=== PATIENT | female | born 1980 | race Caucasian/White ===

== ENCOUNTER 2016-06-19 17:01 | Emergency (ER) | payer MEDICARE, OTHER ==
[~2016-06-19] VITALS: Wt 112.0 kg
[~2016-06-19 17:01] MED LIST: ACET500T84; ASPI81TA3 PO; AUG875 PO; BENA10TA48 PO; CEPH500C PO; CLOT30CR24 TOP; GABA-526 PO; HC1C30 TOP; HYDR-3498 PO; HYDR-906 PO; IBUP-1542 PO; INSU100I14 SC; LANT3I SC; METF1000 PO; METO10TA96 PO; ONDA4TAB14 PO; ONDA4TAB96 PO; POLY17PO3; PRED20TA PO; SYN15 PO; TRAZ100T15 PO; ZOC20 PO
[2016-06-19] MEDS ORDERED: morphine 4 MG/ML VIAL IV STA (17:27)
[2016-06-19] MEDS ORDERED: SOD CHLORIDE 0.9% 1,000 ML IV STA (17:27)
[2016-06-19] MEDS ORDERED: ONDANSETRON 4 MG INJ IV STA (17:27)
--- NOTE | 2016-06-19 17:37 | ERD ---
ER Documentation Chief Complaint Date/Time DATE: 06/19/16 TIME: 17:31 Chief Complaint ABD PAIN SINCE LAST NIGH, NAUSEA NO VOMIT. DIARRHEA NO BLOOD HPI 35-year-old female with a history of gastric bypass Brayan-en-Y procedure 2 months ago present to the emergency department complaining of gradually worsening intermittent 8 out of 10 diffuse abdominal pain 1 day. Patient states she is also felt nauseous but has not vomited. Patient's last bowel movement was this morning and she describes it as loose however patient states this is normal for her as she has had consistent loose stools since the surgery. Patient was initially constipated after surgery and then was placed on MiraLAX and stool softener. Patient also notes intermittent diffuse pruritic rash across her chest. Patient states she is not currently on control and is 11 days late on her. Patient has not treated her pain at home with any analgesic and has not used any postprocedure opiate medication for 1 month. Patient denies any chest pain, shortness of breath, calf swelling or erythema, or headache. ROS All systems reviewed and are negative except as per history of present illness. Medications Home Meds Active Scripts Acetaminophen* (Tylenol*) 325 Mg Tablet, 2 TAB PO Q6 Y for PAIN AND OR ELEVATED TEMP, #20 TAB Prov:JERRICA TANNER PA-C 06/19/16 Ondansetron (Ondansetron Odt) 4 Mg Tab.rapdis, 4 MG PO Q6H Y for NAUSEA AND/OR VOMITING, #10 TAB Prov:JERRICA TANNER PA-C 06/19/16 Ondansetron (Ondansetron Odt) 4 Mg Tab.rapdis, 4 MG PO Q6H Y for NAUSEA AND/OR VOMITING, #10 TAB Prov:EVAN CANNON 02/03/16 Hydrocodone/Acetaminophen ([place] 5-325 Tablet) 1 Each Tablet, 1 TAB PO Q6H Y for PAIN, #20 TAB Prov:EVAN CANNON 02/03/16 Clotrimazole* (Clotrimazole* AF) 1% - 30 Gm Cream.gm., 1 APPLIC TOP BID for 7 Days, TUB Prov:PAULO GOINS PA-C 01/10/16 Hydrocortisone* Topical (Hydrocortisone* Topical) 1%-28.35 Gm Cream..g., 1 APPLIC TOP Q6 Y for ITCHING, #1 TUB Prov:PAULO GOINS PA-C 01/10/16 Prednisone* (Prednisone*) 20 Mg Tab, 60 MG PO DAILY for 5 Days, TAB Prov:PAULO GOINS PA-C 01/10/16 Amoxicillin-Clavulanate K* (Augmentin*) 875 Mg Tab, 875 MG PO BID for 10 Days, TAB Prov:MAYI NUÑEZ MD 06/21/15 Hydrocodone Bit-Acetaminophen* ([place]*) 5-325 Mg Tab, 1 TAB PO Q6 Y for PAIN, # 7 TAB Prov:MAYI NUÑEZ MD 06/21/15 Reported Medications Trazodone Hcl* (Desyrel*) 100 Mg Tab, 100 MG PO TID, #90 06/21/15 Gabapentin* (Gabapentin*) 600 Mg Tablet, 600 MG PO DAILY, #90 06/21/15 Metoclopramide Hcl* (Metoclopramide Hcl*) 10 Mg Tablet, 10 MG PO Q6H Y for NAUSEA AND OR VOMITING, TAB 06/21/15 Polyethylene Glycol* (Polyethylene Glycol*) 17 Gm Powd.pack, #5 06/21/15 Ondansetron Hcl* (Ondansetron Hcl*) 4 mg -ODT Tab.disper, 4 MG PO Q6H Y for NAUSEA AND OR VOMITING, TAB 06/21/15 Cephalexin* (Cephalexin*) 500 Mg Capsule, 500 MG PO QID, #40 06/21/15 Ibuprofen* (Ibuprofen*) 600 Mg Tablet, 600 MG PO Q6 Y for PAIN, #20 06/21/15 Acetaminophen (Q-Pap Extra Strength) 500 Mg Tablet, #60 06/21/15 Insulin Lispro (Humalog) 100 U/Ml Insuln.pen, 20 UNITS SC TID, EA 04/10/14 Insulin Glargine* (Lantus*) 100 Unit/Ml Soln, 45 UNIT SC HS, EA 04/10/14 Simvastatin (Simvastatin) 20 Mg Tablet, 20 MG PO DAILY, TAB 04/10/14 Benazepril Hcl* (Benazepril Hcl*) 10 Mg Tablet, 10 MG PO DAILY, TAB 04/10/14 Levothyroxine Sodium* (Synthroid*) 150 Mcg Tablet, 150 MCG PO DAILY, TAB 04/10/14 Aspirin* (Aspirin* Chew) 81 Mg Tab.chew, 81 MG PO DAILY, TAB.CHEW 04/10/14 Metformin Hcl* (Metformin Hcl*) 1,000 Mg Tablet, 1000 MG PO BID, TAB 04/10/14 Allergies Allergies: Coded Allergies: No Known Allergy (Verified , 10/25/14) PMhx/Soc History of Surgery: Yes (Renal Stone Removed) Anesthesia Reaction: No Hx Neurological Disorder: Yes (Neuropathy) Hx Respiratory Disorders: No Hx Cardiac Disorders: Yes (HTN) Hx Psychiatric Problems: Yes (Insomnia) Hx Miscellaneous Medical Probl: Yes (DM2,Hypothyroidism,Dyslipidemia) Hx Alcohol Use: No Hx Substance Use: No Hx Tobacco Use: No Smoking Status: Never smoker Physical Exam Vitals Vital Signs Date Time Temp Pulse Resp B/P Pulse Ox O2 Delivery O2 Flow Rate FiO2 06/19/16 17:04 98.4 75 20 135/78 100 Physical Exam Const: Well-developed, well-nourished, nontoxic-appearing, well-hydrated, in no acute distress Head: Atraumatic Eyes: Normal Conjunctiva Neck: Full range of motion..~ No meningismus. Resp: Clear to auscultation bilaterally. No wheezes, rhonchi, rales Cardio: Regular rate and rhythm, no murmurs Abd: Laparoscopic incision sites well healed. No evidence of erythema, ecchymosis. soft, diffuse tenderness to palpation across abdomen with discrete tenderness across right upper and lower quadrants, non distended. Normal bowel sounds. No peritoneal signs Skin: No petechiae. Mild faint maculopapular rash extending surface of the chest. Back: No midline or flank tenderness Ext: No cyanosis, or edema Neur: Awake and alert Psych: Normal Mood and Affect Result Diagram: 06/19/16 1745 06/19/16 174 Results 24 hrs Laboratory Tests Test 06/19/16 17:45 06/19/16 17:50 Activated Partial Thromboplast Time 29.8Sec Alanine Aminotransferase (ALT/SGPT) 48IU/L Albumin 3.9g/dl Albumin/Globulin Ratio 1.11 Alkaline Phosphatase 69IU/L Anion Gap 15 Aspartate Amino Transf (AST/SGOT) 37IU/L Basophils # 0.010^3/ul Basophils % 0.6% Beta HCG, Quantitative 1455.8mIU/ml Blood Morphology Comment Blood Urea Nitrogen 19mg/dl Calcium Level 9.5mg/dl Carbon Dioxide Level 26mmol/L Chloride Level 103mmol/L Creatinine 0.66mg/dl Direct Bilirubin 0.00mg/dl Eosinophils # 0.110^3/ul Eosinophils % 0.7% Globulin 3.50g/dl Glucose Level 121mg/dl Hematocrit 39.7% Hemoglobin 13.4g/dl INR International Normalized Ratio 1.10 Indirect Bilirubin 0.4mg/dl Lipase 901U/L Lymphocytes # 2.710^3/ul Lymphocytes % 35.7% Mean Corpuscular Hemoglobin 30.8pg Mean Corpuscular Hemoglobin Concent 33.8g/dl Mean Corpuscular Volume 91.2fl Mean Platelet Volume 9.2fl Monocytes # 0.410^3/ul Monocytes % 4.8% Neutrophils # 4.410^3/ul Neutrophils % 58.2% Nucleated Red Blood Cells # 0.010^3/ul Nucleated Red Blood Cells % 0.0/100WBC Platelet Count 39439^3/UL Potassium Level 3.9mmol/L Prothrombin Time 14.2Sec Prothrombin Time Ratio 1.1 Red Blood Count 4.3510^6/ul Red Cell Distribution Width 14.7% Sodium Level 140mmol/L Total Bilirubin 0.4mg/dl Total Protein 7.4g/dl Troponin I < 0.012ng/ml White Blood Count 7.610^3/ul Urine Bilirubin NEGATIVE Urine Clarity CLEAR Urine Color LT. YELLOW Urine Glucose NEGATIVE% Urine Hemoglobin NEGATIVE Urine Ketones 40 Urine Leukocyte Esterase NEGATIVE Urine Nitrite NEGATIVE Urine Specific [place] >=1.030 Urine Total Protein NEGATIVE Urine Urobilinogen 0.2 E.U./dL Urine pH 5.5 Current Medications Medications (Trade) Dose Ordered Sig/Kesha Route PRN Reason Start Time Stop Time Status Last Admin Dose Admin Sodium Chloride (NS) 1,000 ml @ 1,000 mls/hr Q1H STAT IV 06/19/16 17:27 06/19/16 18:26 06/19/16 17:40 Morphine Sulfate (morphine) 4 mg ONCE STAT IV 06/19/16 17:27 06/19/16 17:44 DC Ondansetron HCl (Zofran Inj) 4 mg ONCE STAT IV 06/19/16 17:27 06/19/16 17:28 06/19/16 17:40 Procedures/MDM Radiology: This is a 35-year-old female with history of Brayan-en-Y gastric bypass surgery 2 months ago. Who presents with worsening diffuse abdominal pain and nausea. Vital signs were reviewed. Patient is afebrile. Patient is not hypoxic. Patient is normotensive and not tachycardic. Abdominal exam reveals diffuse tenderness to palpation. Urine test was positive. A second urine test was administered for confirmation and also positive. CBC showed no evidence of systemic infection or severe anemia. CMP showed no evidence of electrolyte abnormalities, severe acidosis, alkalosis , renal failure, or liver disease. Lipase showed no evidence of acute pancreatitis. UA showed no evidence of acute infection or hematuria. Patient advised to discontinue simvastatin. Patient states she has a follow-up appointment with her primary care physician in 3 days. Patient instructed to keep that appointment. Based on patient's history of present illness and physical examination the decision was made to discharge. The patient was re-evaluated after ED treatment and stabilizing measures, and symptoms have improved. There is no evidence of life threatening injuries or illnesses at this time. On re-examination, patient resting in no distress, stable vital signs, reports feeling better and safe for discharge with outpatient follow up with PMD in 1-2 days. Patient given return precautions. JERRICA TANNER PA-C Jun 19, 2016 17:37
[2016-06-19 17:56] LABS: BASOPHILS % 0.6 % (0.0-2.0); EOSINOPHILS # 0.1 10^3/ul (0.0-0.5); EOSINOPHILS % 0.7 % (0.0-7.0); HEMATOCRIT 39.7 % (37.0-47.0); HEMOGLOBIN 13.4 g/dl (12.0-16.0); LYMPHOCYTES # 2.7 10^3/ul (0.8-2.9); LYMPHOCYTES % 35.7 % (15.0-51.0); MEAN CORPUSCULAR HEMOGLOBIN 30.8 pg (29.0-33.0); MEAN CORPUSCULAR HGB CONC 33.8 g/dl (32.0-37.0); MEAN CORPUSCULAR VOLUME 91.2 fl (82.0-101.0); MEAN PLATELET VOLUME 9.2 fl (7.4-10.4); MONOCYTE # 0.4 10^3/ul (0.3-0.9); MONOCYTES % 4.8 % (0.0-11.0); NEUTROPHIL # 4.4 10^3/ul (1.6-7.5); NEUTROPHILS % 58.2 % (39.0-77.0); PLATELET COUNT 254 10^3/UL (140-440); RED BLOOD COUNT 4.35 10^6/ul (4.20-5.40); RED CELL DISTRIBUTION WIDTH 14.7 % (11.5-14.5); UNCORRECTED WBC 7.6 10^3/ul (4.8-10.8); WHITE BLOOD COUNT 7.6 10^3/ul (4.8-10.8)
[2016-06-19 17:59] LABS: CONDITION 1; LH ANALYZER COMMENTS 1
[2016-06-19 18:06] LABS: ALBUMIN 3.9 g/dl (3.3-4.9); CHLORIDE 103 mmol/L (97-110); INR 1.1; PROTIME 14.2 Sec (12.2-14.2); PT RATIO 1.1
[2016-06-19 18:07] LABS: PARTIAL THROMBOPLASTIN TIME 29.8 Sec (25.0-35.0); POTASSIUM 3.9 mmol/L (3.5-5.1); SODIUM 140 mmol/L (135-144)
[2016-06-19 18:09] LABS: ALANINE AMINOTRANSFERASE 48 IU/L (13-69); ALBUMIN/GLOBULIN RATIO 1.11; ALKALINE PHOSPHATASE 69 IU/L (42-121); ANION GAP 15 (8-16); ASPARTATE AMINO TRANSFERASE 37 IU/L (15-46); BILIRUBIN,INDIRECT 0.4 mg/dl (0-1.1); BILIRUBIN,TOTAL 0.4 mg/dl (0.2-1.3); BLOOD UREA NITROGEN 19 mg/dl (7-20); CARBON DIOXIDE 26 mmol/L (21-31); CREATININE 0.66 mg/dl (0.44-1.00); GLUCOSE 121 mg/dl (70-220); TOTAL PROTEIN 7.4 g/dl (6.1-8.1)
[2016-06-19 18:10] LABS: CALCIUM 9.5 mg/dl (8.4-10.2)
[2016-06-19 18:16] LABS: ADD UMIC NO; URINE BILIRUBIN (Dip) NEGATIVE (NEGATIVE); URINE BLOOD (Dip) NEGATIVE (NEGATIVE); URINE COLOR LT. YELLOW (YELLOW); URINE GLUCOSE (Dip) NEGATIVE (NEGATIVE); URINE KETONES (Dip) 40 (NEGATIVE); URINE LEUKOCYTE ESTERASE (Dip) NEGATIVE (NEGATIVE); URINE NITRITE (Dip) NEGATIVE (NEGATIVE); URINE TOTAL PROTEIN (Dip) NEGATIVE (NEGATIVE); URINE UROBILINOGEN (Dip) 0.2 E.U./dL (0.1-1.0)
[2016-06-19 18:53] LABS: TROPONIN-I < 0.012 ng/ml (0.00-0.12)
[2016-06-19] MEDS ORDERED: ACET325T33 PO (19:01)
[2016-06-19] MEDS ORDERED: ONDA4TAB14 PO (19:01)
--- NOTE | 2016-06-19 20:17 | RADRPT ---
PROCEDURE: US OB. CLINICAL INDICATION: Pain, new dx of today. no bleeding TECHNIQUE: Multiple sonographic images of the pelvis were obtained. COMPARISON: No prior studies are available for comparison. FINDINGS: The uterus is normal in size, contour, and echotexture. There is a 3.6 mm sonolucent focus within t he distal endometrial cavity likely representing early . Gestational sac measurements rupal elate to 5 weeks 1 day gestational age. There is no free fluid in the cul-de-sac or adnexal mass. The right ovary measures 4.5 x 2.4 x 2.7 cm in size. Left ovary measures 3.0 x 1.6 x 2.4 cm in size. Normal ovarian blood flow bilaterally. IMPRESSION: 1. 3.6 mm sonolucent focus within the endometrial cavity likely representing early with ge stational sac measurements correlating to 5 weeks 1 day gestational age. Correlation with serial se rum beta HCG measurements is recommended. 2. No other intrapelvic abnormality. RPTAT:AAJJ Physician Allison Date Time Electronically viewed and signed by Physician Allison on 06/19/2016 20:16 GUILLAUME/
[2016-06-19 20:36] VITALS: BP 121/78; PULSE 78; RESP 18; TEMP 97.9
== END 2016-06-19 20:37 | disposition home or self-care (01) ==
LOC: FTE 17:01
DX: R10.84 Generalized abdominal pain (principal); E11.9 Type 2 diabetes mellitus without complications; I10 Essential (primary) hypertension; E03.9 Hypothyroidism, unspecified; Z33.1 Pregnant state, incidental; Z79.4 Long term (current) use of insulin; Z79.84 Long term (current) use of oral hypoglycemic drugs; Z79.82 Long term (current) use of aspirin
CPT/HCPCS: 36415; 76801; 76817; 80053; 81003; 83690; 84484; 84702; 85025; 85610; 85730; 96374; 96375; 99285; J2405; J7030; J2270

== ENCOUNTER 2016-06-28 23:24 | Emergency (ER) | payer MEDICARE, OTHER ==
[~2016-06-28] VITALS: Ht 170.2 cm; Wt 113.2 kg
[~2016-06-28 23:24] MED LIST changes: +ACET325T33 PO
[2016-06-28 23:29] VITALS: Ht 170.2 cm; Wt 113.2 kg
--- NOTE | 2016-06-29 00:15 | ERD ---
ER Documentation Chief Complaint Date/Time DATE: 06/29/16 TIME: 00:14 Chief Complaint painful/burning urination x 1 day. also c/o abd/back pain. 6 weeks HPI [id number] female presents here in emergency department for complaints of pain upon urination started yesterday. Patient's complaining of pelvic pain, radiating to the back, cramping pain, 4/10 scale, accompanying the symptoms. Patient is approximately 6 weeks , LMP is 05/17/2016. 1 para 0 0. Patient denies any vaginal bleeding. Patient denies any fever or chills. Patient denies any nausea or vomiting. ROS All systems reviewed and are negative except as per history of present illness. Medications Home Meds Active Scripts Acetaminophen* (Tylenol*) 325 Mg Tablet, 2 TAB PO Q6 Y for PAIN AND OR ELEVATED TEMP, #20 TAB Prov:JERRICA TANNER PA-C 06/19/16 Ondansetron (Ondansetron Odt) 4 Mg Tab.rapdis, 4 MG PO Q6H Y for NAUSEA AND/OR VOMITING, #10 TAB Prov:JERRICA TANNER PA-C 06/19/16 Ondansetron (Ondansetron Odt) 4 Mg Tab.rapdis, 4 MG PO Q6H Y for NAUSEA AND/OR VOMITING, #10 TAB Prov:EVAN CANNON 02/03/16 Hydrocodone/Acetaminophen ([place] 5-325 Tablet) 1 Each Tablet, 1 TAB PO Q6H Y for PAIN, #20 TAB Prov:EVNA CANNON 02/03/16 Clotrimazole* (Clotrimazole* AF) 1% - 30 Gm Cream.gm., 1 APPLIC TOP BID for 7 Days, TUB Prov:PAULO GOINS PA-C 01/10/16 Hydrocortisone* Topical (Hydrocortisone* Topical) 1%-28.35 Gm Cream..g., 1 APPLIC TOP Q6 Y for ITCHING, #1 TUB Prov:PAULO GOINS PA-C 01/10/16 Prednisone* (Prednisone*) 20 Mg Tab, 60 MG PO DAILY for 5 Days, TAB Prov:PAULO GOINS PA-C 9/3/16 Amoxicillin-Clavulanate K* (Augmentin*) 875 Mg Tab, 875 MG PO BID for 10 Days, TAB Prov:MAYI NUÑEZ MD 06/21/15 Hydrocodone Bit-Acetaminophen* ([place]*) 5-325 Mg Tab, 1 TAB PO Q6 Y for PAIN, # 7 TAB Prov:MAYI NUÑEZ MD 06/21/15 Reported Medications Trazodone Hcl* (Desyrel*) 100 Mg Tab, 100 MG PO TID, #90 06/21/15 Gabapentin* (Gabapentin*) 600 Mg Tablet, 600 MG PO DAILY, #90 06/21/15 Metoclopramide Hcl* (Metoclopramide Hcl*) 10 Mg Tablet, 10 MG PO Q6H Y for NAUSEA AND OR VOMITING, TAB 06/21/15 Polyethylene Glycol* (Polyethylene Glycol*) 17 Gm Powd.pack, #5 06/21/15 Ondansetron Hcl* (Ondansetron Hcl*) 4 mg -ODT Tab.disper, 4 MG PO Q6H Y for NAUSEA AND OR VOMITING, TAB 06/21/15 Cephalexin* (Cephalexin*) 500 Mg Capsule, 500 MG PO QID, #40 06/21/15 Ibuprofen* (Ibuprofen*) 600 Mg Tablet, 600 MG PO Q6 Y for PAIN, #20 06/21/15 Acetaminophen (Q-Pap Extra Strength) 500 Mg Tablet, #60 06/21/15 Insulin Lispro (Humalog) 100 U/Ml Insuln.pen, 20 UNITS SC TID, EA 04/10/14 Insulin Glargine* (Lantus*) 100 Unit/Ml Soln, 45 UNIT SC HS, EA 04/10/14 Simvastatin (Simvastatin) 20 Mg Tablet, 20 MG PO DAILY, TAB 04/10/14 Benazepril Hcl* (Benazepril Hcl*) 10 Mg Tablet, 10 MG PO DAILY, TAB 04/10/14 Levothyroxine Sodium* (Synthroid*) 150 Mcg Tablet, 150 MCG PO DAILY, TAB 04/10/14 Aspirin* (Aspirin* Chew) 81 Mg Tab.chew, 81 MG PO DAILY, TAB.CHEW 04/10/14 Metformin Hcl* (Metformin Hcl*) 1,000 Mg Tablet, 1000 MG PO BID, TAB 04/10/14 Allergies Allergies: Coded Allergies: No Known Allergy (Verified , 06/28/16) PMhx/Soc History of Surgery: Yes (Renal Stone Removed) Anesthesia Reaction: No Hx Neurological Disorder: Yes (Neuropathy) Hx Respiratory Disorders: No Hx Cardiac Disorders: Yes (HTN) Hx Psychiatric Problems: Yes (Insomnia) Hx Miscellaneous Medical Probl: Yes (DM2,Hypothyroidism,Dyslipidemia HIGH CHOLESTEROL) Hx Alcohol Use: No Hx Substance Use: No Hx Tobacco Use: No Smoking Status: Never smoker FmHx Family History: No coronary disease, No diabetes, No other Physical Exam Vitals Vital Signs Date Time Temp Pulse Resp B/P Pulse Ox O2 Delivery O2 Flow Rate FiO2 06/28/16 23:29 97.5 66 20 128/72 100 Physical Exam GENERAL: The patient is well developed and appropriate for usual state of health, in no apparent distress. CHEST: Clear to auscultation bilaterally. There are no rales, wheezes or rhonchi. HEART: Regular rate and rhythm. No murmurs, clicks, rubs or gallops. No S3 or S4. ABDOMEN: Soft, nontender and nondistended. Good bowel sounds. No rebound or guarding. No gross peritonitis. No gross organomegaly or masses. No Smith sign or McBurney point tenderness. BACK: No midline or flank tenderness. EXTREMITIES: Equal pulses bilaterally. There is no peripheral clubbing, cyanosis or edema. No focal swelling or erythema. Full range of motion. Grossly neurovascularly intact. NEURO: Alert and oriented. Cranial nerves 2-12 intact. Motor strength in all 4 extremities with 5/5 strength. Sensation grossly intact. Normal speech and gait. SKIN: There is no apparent rash or petechia. The skin is warm and dry. HEMATOLOGIC AND LYMPHATIC: There is no evidence of excessive bruising or lymphedema. No gross cervical, axillary, or inguinal lymphadenopathy. Result Diagram: 06/29/16 0040 06/29/16 0040 Results 24 hrs Laboratory Tests Test 06/29/16 00:37 06/29/16 00:40 Urine Bilirubin NEGATIVE Urine Clarity CLEAR Urine Color LT. YELLOW Urine Glucose NEGATIVE% Urine Hemoglobin NEGATIVE Urine Ketones NEGATIVE Urine Leukocyte Esterase NEGATIVE Urine Nitrite NEGATIVE Urine Specific [place] 1.015 Urine Total Protein NEGATIVE Urine Urobilinogen 0.2 E.U./dL Urine pH 5.0 Alanine Aminotransferase (ALT/SGPT) 41IU/L Albumin 4.2g/dl Albumin/Globulin Ratio 1.16 Alkaline Phosphatase 76IU/L Anion Gap 20 Aspartate Amino Transf (AST/SGOT) 37IU/L Basophils # 0.010^3/ul Basophils % 0.3% Beta HCG, Quantitative 69627.0mIU/ml Blood Morphology Comment Blood Urea Nitrogen 18mg/dl Calcium Level 9.5mg/dl Carbon Dioxide Level 23mmol/L Chloride Level 103mmol/L Creatinine 0.60mg/dl Direct Bilirubin 0.00mg/dl Eosinophils # 0.110^3/ul Eosinophils % 0.7% Globulin 3.60g/dl Glucose Level 83mg/dl Hematocrit 39.3% Hemoglobin 13.2g/dl Indirect Bilirubin 0.1mg/dl Lymphocytes # 2.410^3/ul Lymphocytes % 32.0% Mean Corpuscular Hemoglobin 30.6pg Mean Corpuscular Hemoglobin Concent 33.5g/dl Mean Corpuscular Volume 91.3fl Mean Platelet Volume 9.4fl Monocytes # 0.510^3/ul Monocytes % 5.9% Neutrophils # 4.610^3/ul Neutrophils % 61.1% Nucleated Red Blood Cells # 0.010^3/ul Nucleated Red Blood Cells % 0.0/100WBC Platelet Count 39592^3/UL Potassium Level 3.9mmol/L Red Blood Count 4.3010^6/ul Red Cell Distribution Width 14.6% Sodium Level 142mmol/L Total Bilirubin 0.1mg/dl Total Protein 7.8g/dl White Blood Count 7.610^3/ul Current Medications Medications (Trade) Dose Ordered Sig/Kesha Route PRN Reason Start Time Stop Time Status Last Admin Dose Admin Acetaminophen (Tylenol Tab) 500 mg ONCE STAT PO 06/29/16 01:01 06/29/16 01:02 DC 06/29/16 01:52 Patient was given medication for pain here in emergency department, after treatment, patient verbalized feeling much better. Patient's pain is improved. PROCEDURE: US OB. CLINICAL INDICATION: . Vaginal bleeding, pain. Clinical estimate gestational age is 6 weeks 1 day with estimated date of delivery 02/21/2017. TECHNIQUE: Transabdominal and transvaginal imaging of the gravid uterus was performed. Images are reviewed on a high-resolution PACS workstation. COMPARISON: 06/19/2016 FINDINGS: There is a single intrauterine with mean gestational sac diameter equals 1.58 cm corresponding to 6 weeks 2 days gestational age. Yolk sac is seen in the intrauterine gestational sac. No pole is seen at this time. Nabothian cysts in cervix. Bilateral ovaries are unremarkable. Color flow and spectral analysis demonstrates normal arterial flow in both ovaries. No adnexal mass or free intrapelvic fluid is seen. IMPRESSION: Single intrauterine of 6 weeks 2 days gestational age with estimated date of delivery 02/20/2017 based on ultrasound measurement. No pole is seen in the intrauterine gestational sac at this time which could be due to early intrauterine . Correlation with serial quantitative beta HCGs and follow-up ultrasound is recommended. RPTAT: HJES .Andrea Stahl MD, MD Date Time Electronically viewed and signed by .Andrea Stahl MD, MD on 06/29/2016 02:21 .S/ CC: ADA MERRITT FRESCO ARTIST Procedures/MDM Medical Decision Making: Patient's abdominal pain nonspecific at this time, possibly from the growing . At this time, patient's is stable. There is no pole, most likely it is early . No urinary tract infection noted. No ectopic noted. Patient's beta hCG is consistent with patient's . Good flow in the ovaries noted, no adnexal mass noted. There is low suspicion for abdominal emergencies at this time. Patients abdominal exam is normal at this time. Other etiology exam is not indicated at this time. No leukocytosis or bandemia. Low suspicion for any sepsis or any acute bacterial infection.. There is low suspicion for appendicitis, cholecystitis, abdominal aortic aneurysms or peritonitis at this time. There is low suspicion for sepsis. Patient appears well and is hemodynamically stable. Upon discharge and reevaluation, pain is controlled, patient does not have any abdominal pain anymore. Disposition: Home. Condition: Stable Prescription tylenol Instructions: Patient is advised to take medications as prescribed. Patient is advised to rest, increase fluid intake and do see gynecology specialist within 2 days for. Patient is advised that if symptoms are worse, severe abdominal pain , uncontrolled vomiting, high fever, severe flank pain, worst signs and symptoms , to return to the emergency department immediately. Otherwise, patient can follow up with primary care doctor in 5-7 days. Departure Diagnosis: Primary Impression: Intrauterine Additional Impression: Abdominal pain Abdominal location: lower abdomen, unspecified Qualified Code: R10.30 - Lower abdominal pain Condition: Stable Patient Instructions: Abdominal Pain Additional Instructions: Patient is advised to take medications as prescribed. Patient is advised to rest , increase fluid intake and do see gynecology specialist within 2 days for. Patient is advised that if symptoms are worse, severe abdominal pain, uncontrolled vomiting, high fever, severe flank pain, worst signs and symptoms, to return to the emergency department immediately. Otherwise, patient can follow up with primary care doctor in 5-7 days. ADA MERRITT NP Jun 29, 2016 00:15
[2016-06-29] MEDS ORDERED: ACETAMINOPHEN 500 MG TAB PO STA (01:01)
[2016-06-29 01:06] LABS: ALBUMIN 4.2 g/dl (3.3-4.9)
[2016-06-29 01:07] LABS: POTASSIUM 3.9 mmol/L (3.5-5.1)
[2016-06-29 01:09] LABS: ALBUMIN/GLOBULIN RATIO 1.16; BASOPHILS % 0.3 % (0.0-2.0); BILIRUBIN,INDIRECT 0.1 mg/dl (0-1.1); BILIRUBIN,TOTAL 0.1 mg/dl (0.2-1.3); CREATININE 0.6 mg/dl (0.44-1.00); EOSINOPHILS # 0.1 10^3/ul (0.0-0.5); EOSINOPHILS % 0.7 % (0.0-7.0); HEMATOCRIT 39.3 % (37.0-47.0); HEMOGLOBIN 13.2 g/dl (12.0-16.0); LYMPHOCYTES # 2.4 10^3/ul (0.8-2.9); MEAN CORPUSCULAR HEMOGLOBIN 30.6 pg (29.0-33.0); MEAN CORPUSCULAR HGB CONC 33.5 g/dl (32.0-37.0); MEAN CORPUSCULAR VOLUME 91.3 fl (82.0-101.0); MEAN PLATELET VOLUME 9.4 fl (7.4-10.4); MONOCYTE # 0.5 10^3/ul (0.3-0.9); MONOCYTES % 5.9 % (0.0-11.0); NEUTROPHIL # 4.6 10^3/ul (1.6-7.5); NEUTROPHILS % 61.1 % (39.0-77.0); PLATELET COUNT 268 10^3/UL (140-440); RED CELL DISTRIBUTION WIDTH 14.6 % (11.5-14.5); TOTAL PROTEIN 7.8 g/dl (6.1-8.1); UNCORRECTED WBC 7.6 10^3/ul (4.8-10.8); WHITE BLOOD COUNT 7.6 10^3/ul (4.8-10.8)
[2016-06-29 01:10] LABS: CALCIUM 9.5 mg/dl (8.4-10.2)
[2016-06-29 01:11] LABS: ADD UMIC NO; URINE BILIRUBIN (Dip) NEGATIVE (NEGATIVE); URINE BLOOD (Dip) NEGATIVE (NEGATIVE); URINE COLOR LT. YELLOW (YELLOW); URINE GLUCOSE (Dip) NEGATIVE (NEGATIVE); URINE KETONES (Dip) NEGATIVE (NEGATIVE); URINE LEUKOCYTE ESTERASE (Dip) NEGATIVE (NEGATIVE); URINE NITRITE (Dip) NEGATIVE (NEGATIVE); URINE TOTAL PROTEIN (Dip) NEGATIVE (NEGATIVE); URINE UROBILINOGEN (Dip) 0.2 E.U./dL (0.1-1.0)
[2016-06-29 01:16] LABS: CONDITION 1; LH ANALYZER COMMENTS 1
--- NOTE | 2016-06-29 02:21 | RADRPT ---
PROCEDURE: US OB. CLINICAL INDICATION: . Vaginal bleeding, pain. Clinical estimate gestational age is 6 we eks 1 day with estimated date of delivery 02/21/2017. TECHNIQUE: Transabdominal and transvaginal imaging of the gravid uterus was performed. Images are reviewed on a high-resolution PACS workstation. COMPARISON: 06/19/2016 FINDINGS: There is a single intrauterine with mean gestational sac diameter equals 1.58 cm correspon ding to 6 weeks 2 days gestational age. Yolk sac is seen in the intrauterine gestational sac. No f etal pole is seen at this time. Nabothian cysts in cervix. Bilateral ovaries are unremarkable. [place] r flow and spectral analysis demonstrates normal arterial flow in both ovaries. No adnexal mass or f ree intrapelvic fluid is seen. IMPRESSION: Single intrauterine of 6 weeks 2 days gestational age with estimated date of delivery 02/06 based on ultrasound measurement. No pole is seen in the intrauterine gestational sac a t this time which could be due to early intrauterine . Correlation with serial quantitativ e beta HCGs and follow-up ultrasound is recommended. RPTAT: HJES .Andrea Stahl MD, Date Time Electronically viewed and signed by .Andrea Stahl MD, on 06/29/2016 02:21 .S/
[2016-06-29] MEDS ORDERED: ACET500C5 PO (02:42)
== END 2016-06-29 03:30 | disposition home or self-care (01) ==
LOC: FTE 23:24
DX: O26.891 Other specified pregnancy related conditions, first trimester (principal); R10.30 Lower abdominal pain, unspecified; O24.111 Pre-existing type 2 diabetes mellitus, in pregnancy, first trimester; O10.011 Pre-existing essential hypertension complicating pregnancy, first trimester; E03.9 Hypothyroidism, unspecified; R10.2 Pelvic and perineal pain; Z3A.01 Less than 8 weeks gestation of pregnancy; Z79.82 Long term (current) use of aspirin; Z79.84 Long term (current) use of oral hypoglycemic drugs; Z79.4 Long term (current) use of insulin
CPT/HCPCS: 76801; 76817; 80053; 81003; 84702; 85025; 86900; 86901

== ENCOUNTER 2016-07-11 22:40 | Emergency (ER) | payer MEDICARE, OTHER ==
[~2016-07-11] VITALS: Ht 170.2 cm; Wt 106.0 kg
[~2016-07-11 22:40] MED LIST changes: +ACET500C5 PO
[2016-07-11 23:15] VITALS: Ht 170.2 cm; Wt 106.0 kg
[2016-07-12] MEDS ORDERED: SOD CHLORIDE 0.9% 1,000 ML IV STA (02:12)
[2016-07-12] MEDS ORDERED: ONDANSETRON 4 MG INJ IV STA (02:12)
[2016-07-12] MEDS ORDERED: FAMOTIDINE 20 MG INJ IV STA (02:12)
--- NOTE | 2016-07-12 02:31 | ERD ---
ER Documentation Chief Complaint Date/Time DATE: 07/12/16 TIME: 02:30 Chief Complaint C/O LOWER MID AP +NAUSEA, 2 MONTHS HPI 35-year-old female presents here in emergency department for complaints of lower abdominal pain and epigastric pain started today. Patient is approximately 8 weeks , patient denies any vaginal bleeding. 1 para 0 0. Patient is complaining of lower abdominal pain cramping pain , 4/10 scale, also is complaining of epigastric pain, 4/10 scale, accompanied with nausea. Patient has history of gallbladder stones. Patient states that she has biliary colic episodes on-and-off. Patient denies any cramping. Patient denies any fever or chills. Patient denies any hematuria or dysuria. She did not take any medications to help with symptoms. ROS All systems reviewed and are negative except as per history of present illness. Medications Home Meds Active Scripts Acetaminophen* (Tylophen*) 500 Mg Capsule, 1 CAP PO Q6H Y for PAIN AND OR ELEVATED TEMP, #20 CAP Prov:ADA MERRITT NP 06/29/16 Acetaminophen* (Tylenol*) 325 Mg Tablet, 2 TAB PO Q6 Y for PAIN AND OR ELEVATED TEMP, #20 TAB Prov:JERRICA TANNER PA-C 06/19/16 Ondansetron (Ondansetron Odt) 4 Mg Tab.rapdis, 4 MG PO Q6H Y for NAUSEA AND/OR VOMITING, #10 TAB Prov:JERRICA TANNER PA-C 06/19/16 Ondansetron (Ondansetron Odt) 4 Mg Tab.rapdis, 4 MG PO Q6H Y for NAUSEA AND/OR VOMITING, #10 TAB Prov:EVAN CANNON 02/03/16 Hydrocodone/Acetaminophen ([place] 5-325 Tablet) 1 Each Tablet, 1 TAB PO Q6H Y for PAIN, #20 TAB Prov:EVAN CANNON 02/03/16 Clotrimazole* (Clotrimazole* AF) 1% - 30 Gm Cream.gm., 1 APPLIC TOP BID for 7 Days, TUB Prov:PAULO GOINS PA-C 01/10/16 Hydrocortisone* Topical (Hydrocortisone* Topical) 1%-28.35 Gm Cream..g., 1 APPLIC TOP Q6 Y for ITCHING, #1 TUB Prov:PUALO GOINS PA-C 01/10/16 Prednisone* (Prednisone*) 20 Mg Tab, 60 MG PO DAILY for 5 Days, TAB Prov:PAULO GOINS PA-C 01/10/16 Amoxicillin-Clavulanate K* (Augmentin*) 875 Mg Tab, 875 MG PO BID for 10 Days, TAB Prov:MAYI NUÑEZ MD 06/21/15 Hydrocodone Bit-Acetaminophen* ([place]*) 5-325 Mg Tab, 1 TAB PO Q6 Y for PAIN, # 7 TAB Prov:AMYI NUÑEZ MD 06/21/15 Reported Medications Trazodone Hcl* (Desyrel*) 100 Mg Tab, 100 MG PO TID, #90 06/21/15 Gabapentin* (Gabapentin*) 600 Mg Tablet, 600 MG PO DAILY, #90 06/21/15 Metoclopramide Hcl* (Metoclopramide Hcl*) 10 Mg Tablet, 10 MG PO Q6H Y for NAUSEA AND OR VOMITING, TAB 06/21/15 Polyethylene Glycol* (Polyethylene Glycol*) 17 Gm Powd.pack, #5 06/21/15 Ondansetron Hcl* (Ondansetron Hcl*) 4 mg -ODT Tab.disper, 4 MG PO Q6H Y for NAUSEA AND OR VOMITING, TAB 06/21/15 Cephalexin* (Cephalexin*) 500 Mg Capsule, 500 MG PO QID, #40 06/21/15 Ibuprofen* (Ibuprofen*) 600 Mg Tablet, 600 MG PO Q6 Y for PAIN, #20 06/21/15 Acetaminophen (Q-Pap Extra Strength) 500 Mg Tablet, #60 06/21/15 Insulin Lispro (Humalog) 100 U/Ml Insuln.pen, 20 UNITS SC TID, EA 04/10/14 Insulin Glargine* (Lantus*) 100 Unit/Ml Soln, 45 UNIT SC HS, EA 04/10/14 Simvastatin (Simvastatin) 20 Mg Tablet, 20 MG PO DAILY, TAB 04/10/14 Benazepril Hcl* (Benazepril Hcl*) 10 Mg Tablet, 10 MG PO DAILY, TAB 04/10/14 Levothyroxine Sodium* (Synthroid*) 150 Mcg Tablet, 150 MCG PO DAILY, TAB 04/10/14 Aspirin* (Aspirin* Chew) 81 Mg Tab.chew, 81 MG PO DAILY, TAB.CHEW 04/10/14 Metformin Hcl* (Metformin Hcl*) 1,000 Mg Tablet, 1000 MG PO BID, TAB 04/10/14 Allergies Allergies: Coded Allergies: No Known Allergy (Verified , 06/28/16) PMhx/Soc History of Surgery: Yes (Renal Stone Removed gastric bypass 2016) Anesthesia Reaction: No Hx Neurological Disorder: Yes (Neuropathy) Hx Respiratory Disorders: No Hx Cardiac Disorders: Yes (HTN) Hx Psychiatric Problems: Yes (Insomnia) Hx Miscellaneous Medical Probl: Yes (DM2,Hypothyroidism,Dyslipidemia HIGH CHOLESTEROL, gallstones) Hx Alcohol Use: No Hx Substance Use: No Hx Tobacco Use: No Smoking Status: Never smoker FmHx Family History: No coronary disease, No diabetes, No other Physical Exam Vitals Vital Signs Date Time Temp Pulse Resp B/P Pulse Ox O2 Delivery O2 Flow Rate FiO2 07/11/16 23:15 97.6 72 18 120/71 99 Physical Exam GENERAL: The patient is well developed and appropriate for usual state of health, in no apparent distress. CHEST: Clear to auscultation bilaterally. There are no rales, wheezes or rhonchi. HEART: Regular rate and rhythm. No murmurs, clicks, rubs or gallops. No S3 or S4. ABDOMEN: Soft, nontender and nondistended. Good bowel sounds. No rebound or guarding. No gross peritonitis. No gross organomegaly or masses. No Smith sign or McBurney point tenderness. BACK: No midline or flank tenderness. EXTREMITIES: Equal pulses bilaterally. There is no peripheral clubbing, cyanosis or edema. No focal swelling or erythema. Full range of motion. Grossly neurovascularly intact. NEURO: Alert and oriented. Cranial nerves 2-12 intact. Motor strength in all 4 extremities with 5/5 strength. Sensation grossly intact. Normal speech and gait. SKIN: There is no apparent rash or petechia. The skin is warm and dry. HEMATOLOGIC AND LYMPHATIC: There is no evidence of excessive bruising or lymphedema. No gross cervical, axillary, or inguinal lymphadenopathy. Result Diagram: 07/12/16 0230 07/12/16 0230 Results 24 hrs Laboratory Tests Test 07/12/16 02:30 Alanine Aminotransferase (ALT/SGPT) 42IU/L Albumin 4.5g/dl Albumin/Globulin Ratio 1.07 Alkaline Phosphatase 107IU/L Anion Gap 19 Aspartate Amino Transf (AST/SGOT) 44IU/L Basophils # 0.010^3/ul Basophils % 0.2% Beta HCG, Quantitative 370125.0mIU/ml Blood Urea Nitrogen 15mg/dl Calcium Level 9.7mg/dl Carbon Dioxide Level 26mmol/L Chloride Level 104mmol/L Creatinine 0.71mg/dl Direct Bilirubin 0.00mg/dl Eosinophils # 0.110^3/ul Eosinophils % 0.6% Globulin 4.20g/dl Glucose Level 85mg/dl Hematocrit 44.6% Hemoglobin 14.8g/dl Indirect Bilirubin 0.0mg/dl Lipase 155U/L Lymphocytes # 4.210^3/ul Lymphocytes % 33.8% Mean Corpuscular Hemoglobin 30.5pg Mean Corpuscular Hemoglobin Concent 33.2g/dl Mean Corpuscular Volume 92.0fl Mean Platelet Volume 12.2fl Monocytes # 0.610^3/ul Monocytes % 5.1% Neutrophils # 7.410^3/ul Neutrophils % 59.9% Nucleated Red Blood Cells # 0.010^3/ul Nucleated Red Blood Cells % 0.0/100WBC Platelet Count 63428^3/UL Potassium Level 3.7mmol/L Red Blood Count 4.8510^6/ul Red Cell Distribution Width 13.9% Sodium Level 145mmol/L Total Bilirubin 0.0mg/dl Total Protein 8.7g/dl Urine Bilirubin NEGATIVE Urine Clarity CLEAR Urine Color YELLOW Urine Glucose NEGATIVE% Urine Hemoglobin NEGATIVE Urine Ketones NEGATIVE Urine Leukocyte Esterase NEGATIVE Urine Nitrite NEGATIVE Urine Specific Niland >=1.030 Urine Total Protein NEGATIVE Urine Urobilinogen 0.2 E.U./dL Urine pH 5.5 White Blood Count 12.310^3/ul Current Medications Medications (Trade) Dose Ordered Sig/Kesha Route PRN Reason Start Time Stop Time Status Last Admin Dose Admin Sodium Chloride (NS) 1,000 ml @ 1,000 mls/hr Q1H STAT IV 07/12/16 02:12 07/12/16 03:11 DC 07/12/16 02:37 Ondansetron HCl (Zofran Inj) 4 mg ONCE STAT IV 07/12/16 02:12 07/12/16 02:14 DC 07/12/16 02:37 Famotidine (Pepcid Iv) 20 mg ONCE STAT IV 07/12/16 02:12 07/12/16 02:14 DC 07/12/16 02:37 Normal saline IV bolus was given here in emergency department for rehydration, patient tolerated IV fluids. Patient was given Zofran and Pepcid here in the emergency department. After treatment, patient was able to tolerate po fluids here in the emergency department without any vomiting. There is no signs and symptoms of dehydration. PROCEDURE: Abdominal ultrasound, limited. CLINICAL INDICATION: Abdominal pain. TECHNIQUE: Multiple real-time images were acquired of the patient's right upper abdomen utilizing a high resolution transducer. COMPARISON: 02/03/2016. FINDINGS: The liver demonstrates normal echogenicity and size measuring 16.7 cm. There is no focal mass or intrahepatic biliary ductal dilatation. The portal vein is patent. The gallbladder is not distended. Multiple echogenic gallstones are identified. There is no pericholecystic fluid or gallbladder wall thickening. The common bile duct measures 3.6 mm in maximal dimension. The pancreas is obscured by overlying bowel gas. No free fluid is identified. The right kidney is normal size and echogenicity measuring 9.2 cm. There is no focal renal mass or echogenic calculus identified. There is no obstructive uropathy. IMPRESSION: Cholelithiasis without ultrasound evidence of cholecystitis. Pancreas obscured by overlying bowel gas. .Ulices Guerrero MD, MD Date Time Electronically viewed and signed by .Ulices Guerrero MD, MD on 07/12/2016 03:18 .T/ CC: ADA MERRITT NP PROCEDURE: Obstetrical ultrasound. CLINICAL INDICATION: Pelvic pain. TECHNIQUE: Multiple sonographic images of the pelvis were obtained with transabdominal technique. Images were obtained with iyer scale and color Doppler. COMPARISON: 06/29/2016. FINDINGS: There is an intrauterine gestational sac with a pole identified. heart tones of 144 beats per minute are identified. The crown-rump length averages 1.09 cm, compatible with 7 weeks and 1 day. The mean sac diameter averages 3.36 cm, compatible with 8 weeks and 4 days. A yolk sac is identified. No subchorionic collection is identified. There is no pelvic free fluid. Bilateral ovaries are not visualized. There is no suspicious adnexal mass identified. IMPRESSION: Single live intrauterine with an estimated gestational age of 7 weeks and 6 days, with an ultrasound RUTHY of 02/22/2017. Bilateral ovaries not visualized. .Ulices Guerrero MD, Date Time Electronically viewed and signed by .Ulices Guerrero MD, on 07/12/2016 03:19 .T/ CC: ADA MERRITT [employer] OPER[employer] HELPER Procedures/MDM Medical Decision Making: Patient's upper abdominal pain most likely can from increased acidity, can be also be from biliary colic. Liver function tests are normal, no ultrasound evidence of cholecystitis. No Smith sign noted. Patient' s lower abdominal pain nonspecific, can be from the groin , patient's menses stable at this time at 7 weeks. There is low suspicion for abdominal emergencies at this time. Patients abdominal exam is normal at this time. Radiology exam is not indicated at this time. There is low suspicion for appendicitis, cholecystitis, abdominal aortic aneurysms or peritonitis at this time. There is low suspicion for sepsis. Patient appears well and is hemodynamically stable. Disposition: Home. Condition: Stable Prescription Tylenol, Zofran, Pepcid Instructions: Patient is advised to take medications as prescribed. Patient is advised to rest, increase fluid intake and do brat diet for next 1-2 days and progress as tolerated. Patient is advised that if symptoms are worse, severe abdominal pain, uncontrolled vomiting, high fever, severe flank pain, worst signs and symptoms, to return to the emergency department immediately. Otherwise, patient can follow up with OB doctor the next 1-2 days. Departure Diagnosis: Primary Impression: Abdominal pain Abdominal location: generalized Qualified Code: R10.84 - Generalized abdominal pain Additional Impression: Intrauterine Condition: Stable Patient Instructions: Abdominal Pain Additional Instructions: Patient is advised to take medications as prescribed. Patient is advised to rest, increase fluid intake and do brat diet for next 1-2 days and progress as tolerated. Patient is advised that if symptoms are worse, severe abdominal pain , uncontrolled vomiting, high fever, severe flank pain, worst signs and symptoms , to return to the emergency department immediately. Otherwise, patient can follow up with OB doctor the next 1-2 days. ADA MERRITT NP Jul 12, 2016 02:31
--- NOTE | 2016-07-12 03:18 | RADRPT ---
PROCEDURE: Abdominal ultrasound, limited. CLINICAL INDICATION: Abdominal pain. TECHNIQUE: Multiple real-time images were acquired of the patient's right upper abdomen utilizing a high resolution transducer. COMPARISON: 02/03/2016. FINDINGS: The liver demonstrates normal echogenicity and size measuring 16.7 cm. There is no focal mass or in trahepatic biliary ductal dilatation. The portal vein is patent. The gallbladder is not distended. Multiple echogenic gallstones are identified. There is no pericholecystic fluid or gallbladder wa ll thickening. The common bile duct measures 3.6 mm in maximal dimension. The pancreas is obscured by overlying bowel gas. No free fluid is identified. The right kidney is normal size and echogenicity measuring 9.2 cm. There is no focal renal mass or echogenic calculus identified. There is no obstructive uropathy. IMPRESSION: Cholelithiasis without ultrasound evidence of cholecystitis. Pancreas obscured by overlying bowel gas. .Ulices Guerrero MD, Date Time Electronically viewed and signed by .Ulices Guerrero MD, on 07/12/2016 03:18 .T/
--- NOTE | 2016-07-12 03:20 | RADRPT ---
PROCEDURE: Obstetrical ultrasound. CLINICAL INDICATION: Pelvic pain. TECHNIQUE: Multiple sonographic images of the pelvis were obtained with transabdominal technique. Images were obtained with iyer scale and color Doppler. COMPARISON: 06/29/2016. FINDINGS: There is an intrauterine gestational sac with a pole identified. heart tones of 144 beat s per minute are identified. The crown-rump length averages 1.09 cm, compatible with 7 weeks a nd 1 day. The mean sac diameter averages 3.36 cm, compatible with 8 weeks and 4 days. A yolk sac is identified. No subchorionic collection is identified. There is no pelvic free fluid. Bilateral ovaries are not visualized. There is no suspicious adnexal mass identified. IMPRESSION: Single live intrauterine with an estimated gestational age of 7 weeks and 6 days, with an ultrasound RUTHY of 02/22/2017. Bilateral ovaries not visualized. .Ulices Guerrero MD, Date Time Electronically viewed and signed by .Ulices Guerrero MD, MD on 07/12/2016 03:19 .T/
[2016-07-12 03:26] LABS: ADD SCAN DIFF NO
[2016-07-12 03:35] LABS: ADD UMIC NO; URINE BILIRUBIN (Dip) NEGATIVE (NEGATIVE); URINE BLOOD (Dip) NEGATIVE (NEGATIVE); URINE COLOR YELLOW (YELLOW); URINE GLUCOSE (Dip) NEGATIVE (NEGATIVE); URINE KETONES (Dip) NEGATIVE (NEGATIVE); URINE LEUKOCYTE ESTERASE (Dip) NEGATIVE (NEGATIVE); URINE NITRITE (Dip) NEGATIVE (NEGATIVE); URINE TOTAL PROTEIN (Dip) NEGATIVE (NEGATIVE); URINE UROBILINOGEN (Dip) 0.2 E.U./dL (0.1-1.0)
[2016-07-12 03:39] LABS: ALBUMIN 4.5 g/dl (3.3-4.9)
[2016-07-12 03:40] LABS: POTASSIUM 3.7 mmol/L (3.5-5.1)
[2016-07-12 03:42] LABS: ALBUMIN/GLOBULIN RATIO 1.07; CREATININE 0.71 mg/dl (0.44-1.00); TOTAL PROTEIN 8.7 g/dl (6.1-8.1)
[2016-07-12 03:43] LABS: CALCIUM 9.7 mg/dl (8.4-10.2)
[2016-07-12 03:55] LABS: BASOPHILS % 0.2 % (0.0-2.0); EOSINOPHILS # 0.1 10^3/ul (0.0-0.5); EOSINOPHILS % 0.6 % (0.0-7.0); HEMATOCRIT 44.6 % (37.0-47.0); HEMOGLOBIN 14.8 g/dl (12.0-16.0); LYMPHOCYTES # 4.2 10^3/ul (0.8-2.9); LYMPHOCYTES % 33.8 % (15.0-51.0); MEAN CORPUSCULAR HEMOGLOBIN 30.5 pg (29.0-33.0); MEAN CORPUSCULAR HGB CONC 33.2 g/dl (32.0-37.0); MEAN PLATELET VOLUME 12.2 fl (7.4-10.4); MONOCYTE # 0.6 10^3/ul (0.3-0.9); MONOCYTES % 5.1 % (0.0-11.0); NEUTROPHIL # 7.4 10^3/ul (1.6-7.5); NEUTROPHILS % 59.9 % (39.0-77.0); PLATELET COUNT 300 10^3/UL (140-415); RED BLOOD COUNT 4.85 10^6/ul (4.20-5.40); RED CELL DISTRIBUTION WIDTH 13.9 % (11.5-14.5); WHITE BLOOD COUNT 12.3 10^3/ul (4.8-10.8)
[2016-07-12] MEDS ORDERED: ONDA4TAB14 PO (05:04)
[2016-07-12] MEDS ORDERED: ACET500C5 PO (05:04)
[2016-07-12] MEDS ORDERED: FAMO-18 PO (05:05)
[2016-07-12 05:44] VITALS: BP 124/66; PULSE 89; RESP 20; TEMP 98
== END 2016-07-12 05:45 | disposition home or self-care (01) ==
LOC: FTE 22:40
DX: O26.891 Other specified pregnancy related conditions, first trimester (principal); R10.84 Generalized abdominal pain; O10.011 Pre-existing essential hypertension complicating pregnancy, first trimester; O99.281 Endocrine, nutritional and metabolic diseases complicating pregnancy, first trimester; O21.9 Vomiting of pregnancy, unspecified; O24.111 Pre-existing type 2 diabetes mellitus, in pregnancy, first trimester; Z3A.08 8 weeks gestation of pregnancy; Z79.82 Long term (current) use of aspirin; Z79.84 Long term (current) use of oral hypoglycemic drugs
CPT/HCPCS: 36415; 76705; 76801; 80053; 81003; 83690; 84702; 85025; 96374; 96375; 99285; J2405; J7030

== ENCOUNTER 2016-08-16 04:57 | Emergency (ER) | payer MEDICARE, OTHER ==
[~2016-08-16] VITALS: Ht 170.2 cm; Wt 109.0 kg
[~2016-08-16 04:57] MED LIST changes: +FAMO-18 PO
[2016-08-16 04:59] VITALS: Ht 170.2 cm; Wt 109.0 kg
[2016-08-16] MEDS ORDERED: ONDANSETRON 4 MG INJ IV STA ×2 (05:31→06:23)
[2016-08-16] MEDS ORDERED: SOD CHLORIDE 0.9% 1,000 ML IV STA (05:31)
[2016-08-16] MEDS ORDERED: morphine 4 MG/ML VIAL IV STA (05:31)
[2016-08-16 05:33] LABS: ADD SCAN DIFF NO
[2016-08-16 05:36] LABS: BASOPHILS % 0.2 % (0.0-2.0); EOSINOPHILS # 0.1 10^3/ul (0.0-0.5); EOSINOPHILS % 1.1 % (0.0-7.0); HEMATOCRIT 42.5 % (37.0-47.0); HEMOGLOBIN 13.9 g/dl (12.0-16.0); LYMPHOCYTES % 34.1 % (15.0-51.0); MEAN CORPUSCULAR HEMOGLOBIN 30.3 pg (29.0-33.0); MEAN CORPUSCULAR HGB CONC 32.7 g/dl (32.0-37.0); MEAN CORPUSCULAR VOLUME 92.8 fl (82.0-101.0); MEAN PLATELET VOLUME 10.3 fl (7.4-10.4); MONOCYTE # 0.6 10^3/ul (0.3-0.9); MONOCYTES % 7.2 % (0.0-11.0); NEUTROPHIL # 5.1 10^3/ul (1.6-7.5); NEUTROPHILS % 57.2 % (39.0-77.0); PLATELET COUNT 247 10^3/UL (140-415); RED BLOOD COUNT 4.58 10^6/ul (4.20-5.40); RED CELL DISTRIBUTION WIDTH 13.6 % (11.5-14.5); WHITE BLOOD COUNT 8.9 10^3/ul (4.8-10.8)
[2016-08-16] MEDS ORDERED: HYDROmorphONE 1 MG/ML SYG IV STA ×3 (05:40→08:00)
--- NOTE | 2016-08-16 07:10 | RADRPT ---
PROCEDURE: US OB. CLINICAL INDICATION: Vaginal bleeding in . TECHNIQUE: Transabdominal and endovaginal imaging of the gravid uterus is available for review COMPARISON: None available FINDINGS: There is a single intrauterine with a crown-rump length of 1.45 cm, giving an estimated ge stational age of 8 weeks 5 days by ultrasound criteria. No heart tones are detected. No subc horionic hemorrhage is identified. The ovaries are unremarkable. IMPRESSION: Single intrauterine with an estimated gestational age of 8 weeks 5 days by ultrasound crit eria. No heart tones are detected. Findings are compatible with early failed . RPTAT: HH .Ashley Grimes MD, Date Time Electronically viewed and signed by .Ashley Grimes MD, on 08/16/2016 07:10 .G/
--- NOTE | 2016-08-16 08:49 | ERA ---
ER Documentation Chief Complaint Date/Time DATE: 08/16/16 TIME: 08:46 Chief Complaint abd pain and vb s/p rian x 5 days, states was 9 weeks HPI This is a 35-year-old female who had an ultrasound done last Tuesday the demonstrated demise at 8 weeks 5 days. The patient was seen by her chop saw operator and offered medication to help abort the missed miscarriage the patient elected not to take it. The patient's been asymptomatic until last night when she started having some vaginal bleeding with cramps and clots. She says the cramps are very strong and intermittent. Her bleeding is moderate. She has no syncope no vomiting diarrhea no back pain no dizziness. She is a . ROS All systems reviewed and are negative except as per history of present illness. Medications Home Meds Active Scripts Famotidine* (Pepcid*) 20 Mg Tablet, 20 MG PO BID, #20 TAB Prov:ADA MERRITT [employer] 07/12/16 Acetaminophen* (Tylophen*) 500 Mg Capsule, 1 CAP PO Q6H Y for PAIN AND OR ELEVATED TEMP, #20 CAP Prov:ADA MERRITT [employer]ACH 07/12/16 Ondansetron (Ondansetron Odt) 4 Mg Tab.rapdis, 4 MG PO Q8 Y for NAUSEA AND/OR VOMITING, #10 TAB Prov:ADA MERRITT [employer] COACH 07/12/16 Acetaminophen* (Tylophen*) 500 Mg Capsule, 1 CAP PO Q6H Y for PAIN AND OR ELEVATED TEMP, #20 CAP Prov:ADA MERRITT [employer] COACH 06/29/16 Acetaminophen* (Tylenol*) 325 Mg Tablet, 2 TAB PO Q6 Y for PAIN AND OR ELEVATED TEMP, #20 TAB Prov:JERRICA TANNERC 06/19/16 Ondansetron (Ondansetron Odt) 4 Mg Tab.rapdis, 4 MG PO Q6H Y for NAUSEA AND/OR VOMITING, #10 TAB Prov:JERRICA TANNER-Carli 06/19/16 Ondansetron (Ondansetron Odt) 4 Mg Tab.rapdis, 4 MG PO Q6H Y for NAUSEA AND/OR VOMITING, #10 TAB Prov:EVAN CANNON. 02/03/16 Hydrocodone/Acetaminophen ([place] 5-325 Tablet) 1 Each Tablet, 1 TAB PO Q6H Y for PAIN, #20 TAB Prov:EVAN CANNON Saji. 02/03/16 Clotrimazole* (Clotrimazole* AF) 1% - 30 Gm Cream.gm., 1 APPLIC TOP BID for 7 Days, TUB Prov:PAULO GOINS PA-C 01/10/16 Hydrocortisone* Topical (Hydrocortisone* Topical) 1%-28.35 Gm Cream..g., 1 APPLIC TOP Q6 Y for ITCHING, #1 TUB Prov:PAULO GOINS PA-C 01/10/16 Prednisone* (Prednisone*) 20 Mg Tab, 60 MG PO DAILY for 5 Days, TAB Prov:PAULO GOINS PA-C 01/10/16 Amoxicillin-Clavulanate K* (Augmentin*) 875 Mg Tab, 875 MG PO BID for 10 Days, TAB Prov:MAYI NUÑEZ MD 06/21/15 Hydrocodone Bit-Acetaminophen* ([place]*) 5-325 Mg Tab, 1 TAB PO Q6 Y for PAIN, # 7 TAB Prov:MAYI NUÑEZ MD 06/21/15 Reported Medications Trazodone Hcl* (Desyrel*) 100 Mg Tab, 100 MG PO TID, #90 06/21/15 Gabapentin* (Gabapentin*) 600 Mg Tablet, 600 MG PO DAILY, #90 06/21/15 Metoclopramide Hcl* (Metoclopramide Hcl*) 10 Mg Tablet, 10 MG PO Q6H Y for NAUSEA AND OR VOMITING, TAB 06/21/15 Polyethylene Glycol* (Polyethylene Glycol*) 17 Gm Powd.pack, #5 06/21/15 Ondansetron Hcl* (Ondansetron Hcl*) 4 mg -ODT Tab.disper, 4 MG PO Q6H Y for NAUSEA AND OR VOMITING, TAB 06/21/15 Ibuprofen* (Ibuprofen*) 600 Mg Tablet, 600 MG PO Q6 Y for PAIN, #20 06/21/15 Acetaminophen (Q-Pap Extra Strength) 500 Mg Tablet, #60 06/21/15 Insulin Lispro (Humalog) 100 U/Ml Insuln.pen, 20 UNITS SC TID, EA 04/10/14 Insulin Glargine* (Lantus*) 100 Unit/Ml Soln, 45 UNIT SC HS, EA 04/10/14 Simvastatin (Simvastatin) 20 Mg Tablet, 20 MG PO DAILY, TAB 04/10/14 Benazepril Hcl* (Benazepril Hcl*) 10 Mg Tablet, 10 MG PO DAILY, TAB 04/10/14 Levothyroxine Sodium* (Synthroid*) 150 Mcg Tablet, 150 MCG PO DAILY, TAB 04/10/14 Aspirin* (Aspirin* Chew) 81 Mg Tab.chew, 81 MG PO DAILY, TAB.CHEW 04/10/14 Metformin Hcl* (Metformin Hcl*) 1,000 Mg Tablet, 1000 MG PO BID, TAB 04/10/14 Discontinued Reported Medications Cephalexin* (Cephalexin*) 500 Mg Capsule, 500 MG PO QID, #40 06/21/15 Allergies Allergies: Coded Allergies: No Known Allergy (Verified , 06/28/16) PMhx/Soc History of Surgery: Yes (Renal Stone Removed gastric bypass 2015) Anesthesia Reaction: No Hx Neurological Disorder: Yes (Neuropathy) Hx Respiratory Disorders: No Hx Cardiac Disorders: Yes (HTN) Hx Psychiatric Problems: Yes (Insomnia) Hx Miscellaneous Medical Probl: Yes (DM2,Hypothyroidism,Dyslipidemia HIGH CHOLESTEROL, gallstones) Hx Alcohol Use: No Hx Substance Use: No Hx Tobacco Use: No Smoking Status: Never smoker FmHx Family History: No coronary disease Physical Exam Vitals Vital Signs Date Time Temp Pulse Resp B/P Pulse Ox O2 Delivery O2 Flow Rate FiO2 08/16/16 08:25 59 18 156/90 100 Room Air 08/16/16 06:25 80 18 139/95 100 Room Air 08/16/16 05:45 75 18 145/96 100 Room Air 08/16/16 04:59 98.1 61 17 170/88 99 Physical Exam Const: Well-developed, well-nourished Head: Atraumatic, normocephalic Eyes: Normal Conjunctiva, PERRLA, EOMI, normal sclera, no nystagmus ENT: Normal External Ears, Nose and Mouth, moist mucus membranes. Neck: Full range of motion. No meningismus, no lymphadenopathy. Resp: Clear to auscultation bilaterally, no wheezing, rhonchi, rales Cardio: Regular rate and rhythm, no murmurs, S1 S2 present Abd: Soft, diffuse lower pelvic tenderness, non distended. Normal bowel sounds, no guarding or rebound, no pulsitile abdominal masses or bruits Skin: No petechiae or rashes, no ecchymosis , no maculopapular rash Back: No midline or flank tenderness Ext: No cyanosis, or edema, FROM x 4, normal inspection, neurovascularly intact x 4 Neur: Awake and alert, STR 5/5 x 4, sensation intact x 4, no focal findings, cerebellum intact Psych: Normal Mood and Affect Result Diagram: 08/16/16516 Results 24 hrs Laboratory Tests Test 08/16/16 05:17 White Blood Count 8.910^3/ul Red Blood Count 4.5810^6/ul Hemoglobin 13.9g/dl Hematocrit 42.5% Mean Corpuscular Volume 92.8fl Mean Corpuscular Hemoglobin 30.3pg Mean Corpuscular Hemoglobin Concent 32.7g/dl Red Cell Distribution Width 13.6% Platelet Count 02653^3/UL Mean Platelet Volume 10.3fl Neutrophils % 57.2% Lymphocytes % 34.1% Monocytes % 7.2% Eosinophils % 1.1% Basophils % 0.2% Nucleated Red Blood Cells % 0.0/100WBC Neutrophils # 5.110^3/ul Lymphocytes # 3.010^3/ul Monocytes # 0.610^3/ul Eosinophils # 0.110^3/ul Basophils # 0.010^3/ul Nucleated Red Blood Cells # 0.010^3/ul Beta HCG, Quantitative 1435.5mIU/ml Current Medications Medications (Trade) Dose Ordered Sig/Kesha Route PRN Reason Start Time Stop Time Status Last Admin Dose Admin Sodium Chloride (NS) 1,000 ml @ 1,000 mls/hr Q1H STAT IV 08/16/16 05:31 08/16/16 06:30 DC 08/16/16 05:37 Morphine Sulfate (morphine) 4 mg ONCE STAT IV 08/16/16 05:31 08/16/16 05:32 DC 08/16/16 05:37 Ondansetron HCl (Zofran Inj) 4 mg ONCE STAT IV 08/16/16 05:31 08/16/16 05:32 DC 08/16/16 05:37 Hydromorphone HCl (Dilaudid) 1 mg ONCE STAT IV 08/16/16 05:40 08/16/16 05:41 DC 08/16/16 05:43 Hydromorphone HCl (Dilaudid) 0.5 mg ONCE STAT IV 08/16/16 06:23 08/16/16 06:24 DC 08/16/16 06:30 Ondansetron HCl (Zofran Inj) 4 mg ONCE STAT IV 08/16/16 06:23 08/16/16 06:24 DC 08/16/16 06:30 Hydromorphone HCl (Dilaudid) 1 mg ONCE STAT IV 08/16/16 08:00 08/16/16 08:02 DC 08/16/16 08:18 Procedures/MDM PROCEDURE: US OB. CLINICAL INDICATION: Vaginal bleeding in . TECHNIQUE: Transabdominal and endovaginal imaging of the gravid uterus is available for review COMPARISON: None available FINDINGS: There is a single intrauterine with a crown-rump length of 1.45 cm, giving an estimated gestational age of 8 weeks 5 days by ultrasound criteria. No heart tones are detected. No subchorionic hemorrhage is identified. The ovaries are unremarkable. IMPRESSION: Single intrauterine with an estimated gestational age of 8 weeks 5 days by ultrasound criteria. No heart tones are detected. Findings are compatible with early failed . RPTAT: HH .Ashley Grimes MD, Date Time Electronically viewed and signed by .Ashley Grimes MD, on 08/16/2016 07 :10 .G/ CC: EVAN CANNON Beta hCG is 1400s, H&H is stable. Spoke with nurse practitioner of the patient's chop saw operator and will transfer her to all of you she will undergo D&C due to her lack of pop passing the demised fetus and due to patient's requirement for multiple pain medications does Departure Diagnosis: Primary Impression: demise Additional Impression: Incomplete miscarriage Condition: Stable MARCUS ARMENTA DO Aug 16, 2016 08:49
[2016-08-16 10:04] VITALS: BP 156/93; PULSE 71; RESP 18; TEMP 98.1
== END 2016-08-16 10:13 | disposition short-term general hospital (02) ==
LOC: E/R 04:57
DX: O02.1 Missed abortion (principal); O03.4 Incomplete spontaneous abortion without complication; O10.011 Pre-existing essential hypertension complicating pregnancy, first trimester; O24.111 Pre-existing type 2 diabetes mellitus, in pregnancy, first trimester; E11.9 Type 2 diabetes mellitus without complications; O99.280 Endocrine, nutritional and metabolic diseases complicating pregnancy, unspecified trimester; E03.9 Hypothyroidism, unspecified; Z79.82 Long term (current) use of aspirin; Z79.84 Long term (current) use of oral hypoglycemic drugs; Z79.4 Long term (current) use of insulin
CPT/HCPCS: 36415; 76801; 76817; 84702; 85025; 86900; 86901; 96374; 96375; 96376; 99285; J1170; J2270; J2405; J7030

== ENCOUNTER 2017-08-02 23:05 | Inpatient (IN) | END 2017-08-06 15:24 | disposition home or self-care (01) | DRG 766 ==

== ENCOUNTER 2017-08-10 11:49 | Inpatient (IN) | END 2017-08-11 10:20 | disposition home or self-care (01) | DRG 776 ==